=== PATIENT | male | born 1995 | race Caucasian/White ===

== ENCOUNTER 2018-07-30 15:22 | Emergency (ER) | payer OTHER ==
--- NOTE | 2018-07-30 16:44 | EDM.PDOC ---
ED HPI GENERAL MEDICAL PROBLEM - General Chief Complaint: Upper Extremity Injury/Pain Stated Complaint: RIGHT RING FINGER INJURY AT WORK Time Seen by Provider: 07/30/18 16:43 Source of Information: Reports: Patient History Limitations: Reports: No Limitations - History of Present Illness INITIAL COMMENTS - FREE TEXT/NARRATIVE: 22-year-old male presents for evaluation and treatment of injury to the right hand fourth finger. Injury occurred prior to arrival in the ER. Patient was at work. 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 States that he caughte the distal finger in a car door. He has numbness, tingling, swelling and bruising to the right hand fourth distal phalanx. Nail is partially avulsed. Denies any injury to any other fingers. Bleeding controlled upon arrival to the ER. Tetanus was 7 years ago. Patient is right-handed. Right Finger-Ring Pain Score (Numeric/FACES): 7 - Related Data Allergies Allergy/AdvReac Type Severity Reaction Status Date / Time sumatriptan [From Imitrex] Allergy Anaphylactic Verified 07/30/18 16:13 Shock Home Meds: Home Meds Acetaminophen/HYDROcodone [[place] 325-5 MG] 1 tab PO Q4H PRN #10 tablet 07/30/18 [Rx] Cephalexin [Keflex] 500 mg PO BID #14 capsule 07/30/18 [Rx] Review of Systems - Review of Systems Review Of Systems: See Below Musculoskeletal: Reports: Hand Pain (Right fourth finger) Skin: Reports: Wound (Right fourth finger partial nail avulsion of the proximal and) Neurological: Reports: Numbness (Right fourth finger), Tingling (Right fourth finger) ED EXAM, GENERAL - Physical Exam Exam: See Below Exam Limited By: No Limitations General Appearance: Alert, WD/WN, No Apparent Distress Respiratory/Chest: No Respiratory Distress, Lungs Clear, Normal Breath Sounds Cardiovascular: Normal Peripheral Pulses, Regular Rate, Rhythm, No Murmur Peripheral Pulses: 2+: Radial (R) Extremities: Normal Capillary Refill, Other (swelling, bruuising to hte right distal 4th finger, nail partially avulsed at the proximal aspect, minor bleeding ) Neurological: Alert, Oriented, Normal Cognition Psychiatric: Normal Affect, Normal Mood Skin Exam: Warm, Dry, Normal Color ED TRAUMA EXTREMITY PROCEDURES - Splinting Right Upper Extremity Splint Site: Right fourth finger Pre-Procedure NV Status: Normal Post-Procedure NV Status: Normal Splint Material: Aluminum-Foam, Elke Tape Splint Design: Posterior Applied & Form Fitted By: Nurse Provider Post-Splint Application NV Check: NV Status Normal, Good Position Complications: No Course - Vital Signs Last Recorded V/S: Last Vital Signs Temp 97.5 F 07/30/18 16:07 Pulse 88 07/30/18 16:07 Resp 20 07/30/18 16:07 BP 145/86 H 07/30/18 16:07 Pulse Ox 99 07/30/18 16:07 - Orders/Labs/Meds Meds: Medications Discontinued Medications Generic Name Dose Route Start Last Admin Trade Name Freq PRN Reason Stop Dose Admin Cephalexin 500 mg 07/30/18 17:57 Keflex PO 07/30/18 17:58 ONETIME ONE - Radiology Interpretation Free Text/Narrative:: Right fourth finger: 4 views of the right fourth finger are obtained. Comparison: No previous study. Slightly comminuted tuft fracture is noted within the distal right fourth finger. Diffuse soft tissue swelling is seen. No additional fracture or other bony abnormality is appreciated. Impression: 1. Tuft fracture as noted above. Diffuse soft tissue swelling. - Re-Assessments/Exams Free Text/Narrative Re-Assessment/Exam: 07/30/18 18:00 Reviewed the x-ray results with the patient. Nothing to suture we will clean him up in his tetanus is up-to-date. We'll place on antibiotics. Will place in AlumaFoam splint and elke tape the fingers. Follow-up with occupational health. Discharge instructions as documented. Departure - Departure Time of Disposition: 18:03 Disposition: Home, Self-Care 01 Condition: Fair Clinical Impression: Phalanx, distal fracture of finger, Nail avulsion, finger - Discharge Information *PRESCRIPTION DRUG MONITORING PROGRAM REVIEWED*: No *COPY OF PRESCRIPTION DRUG MONITORING REPORT IN PATIENT [facility]: No Prescriptions: Acetaminophen/HYDROcodone [[place] 325-5 MG] 1 tab PO Q4H PRN #10 tablet PRN Reason: Pain Cephalexin [Keflex] 500 mg PO BID #14 capsule Instructions: Finger Fracture, Adult, [id number] Referrals: PCP,None [Primary Care Provider] - Alexei Mueller MD [Physician] - Forms: ED Department Discharge Additional Instructions: [id number] Tylenol or Motrin as needed for pain. Do not take more than 4 g of Tylenol from all sources in 1 day. Do not take more than 3200 mg of ibuprofen from all sources in 1 day. For pain not [id number] Tylenol or Motrin may take [place] one tablet every 4-6 hours. [place] is habit-forming, take as few these as needed to control your pain. Do not drive or operate machinery within 10 hours of taking [place]. Follow-up with orthopedics this week or next week. Recommend Dr. Mueller. Call [phone] to schedule with him. Ice as much as you able to. Elevate, blood flow. Heart help the swelling. Keep the splint on for protection. Elke tape for immobilization. Please return to the ER for symptoms change or worsen.
[2018-07-30] MEDS ORDERED: Cephalexin 500 MG Cap PO ONE (17:57)
--- NOTE | 2018-07-31 11:27 | CR ---
Right fourth finger: Four views of the right fourth finger are obtained. Comparison: No previous study. Slightly comminuted tuft fracture is noted within the distal right fourth finger. Diffuse soft tissue swelling is seen. No additional fracture or other bony abnormality is appreciated. Impression: 1. Tuft fracture as noted above. Diffuse soft tissue swelling. Diagnostic code #3
== END 2018-07-30 18:18 | disposition home or self-care (01) ==
LOC: JD.ED 15:22
DX: S62.634A Displaced fracture of distal phalanx of right ring finger, initial encounter for closed fracture (principal); Z88.8 Allergy status to other drugs, medicaments and biological substances; W23.0XXA Caught, crushed, jammed, or pinched between moving objects, initial encounter; Y99.0 Civilian activity done for income or pay
CPT/HCPCS: 73140-26-F8; 73140-F8; 99283; 99283-25

== ENCOUNTER 2020-08-30 18:27 | Emergency (ER) | payer BC, OTHER ==
[2020-08-30] MEDS ORDERED: Fluorescein 1 MG Ophth Strip EYERT ONE (18:47)
--- NOTE | 2020-08-30 18:52 | EDM.PDOC ---
ED HPI GENERAL MEDICAL PROBLEM - General Chief Complaint: Eye Problems Stated Complaint: FB IN LT EYE Time Seen by Provider: 08/30/20 18:43 Source of Information: Reports: Patient, RN Notes Reviewed History Limitations: Reports: No Limitations - History of Present Illness INITIAL COMMENTS - FREE TEXT/NARRATIVE: Patient is a 24-year-old male who presents to the ER for the evaluation of a foreign body sensation in his left eye. The patient states that prior to coming to the ER, he was using a drill bit, on some glass, he was not wearing eye protection, he felt something hit his left eye. He immediately flushed his eye out for some time, but continues to have a scratching sensation into his left eye, redness and irritation along with some watering of his left eye. He is denying any blurred vision or double vision. Patient denies any other sick-like symptoms, fever/chills, cough/shortness of breath, nausea/vomiting/diarrhea. Patient does not normally wear contacts but does have glasses for astigmatism. Patient also states that he is having some left ankle pain, as he did roll his ankle at work last week but he has been able to bear weight on this since then. He is not really been taking any sort of Tylenol ibuprofen for the pain management nor has he been using any sort of compression or ice or elevation. - Related Data Allergies Allergy/AdvReac Type Severity Reaction Status Date / Time sumatriptan [From Imitrex] Allergy Anaphylactic Verified 08/30/20 18:35 Shock Home Meds: Home Meds . [No Known Home Meds] 08/30/20 [History] Past Medical History - Past Health History Medical/Surgical History: Denies Medical/Surgical History Neurological History: Reports: Concussion Psychiatric History: Reports: Psych Hospitalization(s) Dermatologic History: Reports: Eczema - Past Surgical History Other HEENT Surgeries/Procedures: bilateral ear tubs as a child Social & Family History - Family History Family Medical History: No Pertinent Family History - Tobacco Use Tobacco Use Status *Q: Former Tobacco User Used Tobacco, but Quit: Yes Month/Year Tobacco Last Used: 07/2020 - Caffeine Use Caffeine Use: Reports: Coffee, Tea - Recreational Drug Use Recreational Drug Use: No ED ROS GENERAL - Review of Systems Review Of Systems: Comprehensive ROS is negative, except as noted in HPI. ED EXAM GENERAL W FULL EYE - Physical Exam Exam: See Below Exam Limited By: No Limitations General Appearance: Alert, WD/WN, No Apparent Distress Eye Exam: Right Eye: Normal Inspection, Left Eye: Conjunctival Injection, Bilateral Eye: EOMI, PERRL Eyelids: Bilateral: Normal Appearance, Lid Everted for Exam Conjunctiva & Sclera: Right: Normal Appearance, Left: Injected Cornea Exam: Left: Corneal Abrasion, Examined with Flourescein Extraocular Movements: Bilateral: Intact Pupils: Normal Accommodation Pupillary Size: Bilateral: 3 mm Pupillary Reaction: Bilateral: Brisk Respiratory/Chest: No Respiratory Distress, Lungs Clear, Normal Breath Sounds, No Accessory Muscle Use, Chest Non-Tender Cardiovascular: Normal Peripheral Pulses, Regular Rate, Rhythm, No Edema Extremities: Normal Inspection, Normal Capillary Refill Neurological: Alert, Oriented, Normal Cognition, No Motor/Sensory Deficits Psychiatric: Normal Affect, Normal Mood Skin Exam: Warm, Dry, Intact, Normal Color, No Rash Course - Vital Signs Last Recorded V/S: Last Vital Signs Temp 98 F 08/30/20 18:31 Pulse 76 08/30/20 18:31 Resp 14 08/30/20 18:31 BP 121/81 08/30/20 18:31 Pulse Ox 98 08/30/20 18:31 - Orders/Labs/Meds Meds: Medications Discontinued Medications Generic Name Dose Route Start Last Admin Trade Name Artemio PRN Reason Stop Dose Admin Erythromycin 1 gm 08/30/20 19:14 Erythromycin Base 0.5% Ophth Oint 1 Gm Tube EYELF 08/30/20 19:15 ONETIME ONE Fluorescein Sodium 1 mg 08/30/20 18:47 08/30/20 19:03 Fluorescein 1 Mg Ophth Strip EYERT 08/30/20 18:48 1 mg ONETIME ONE Administration Ketorolac Tromethamine 1 ml 08/30/20 19:14 Ketorolac 0.5% Ophth Soln 5 Ml Bottle EYELF 08/30/20 19:15 ONETIME ONE - Re-Assessments/Exams Free Text/Narrative Re-Assessment/Exam: 08/30/20 18:51 Patient presents to the ER for the evaluation of his left eye irritation, likely has a corneal abrasion, have ordered some fluorescein for further evaluation of his eye. Departure - Departure Time of Disposition: 19:16 Disposition: Home, Self-Care 01 Condition: Good Clinical Impression: History of sprained ankle Injury of conjunctiva and corneal abrasion of left eye w/o FB Qualifiers: Encounter type: initial encounter Qualified Code(s): S05.02XA - Injury of conjunctiva and corneal abrasion without foreign body, left eye, initial encounter - Discharge Information *PRESCRIPTION DRUG MONITORING PROGRAM REVIEWED*: No *COPY OF PRESCRIPTION DRUG MONITORING REPORT IN PATIENT [facility]: No Instructions: Corneal Abrasion, [id number] Referrals: PCP,None [Primary Care Provider] - Forms: ED Department Discharge Additional Instructions: You have been evaluated in the ED today for a foreign body sensation in your eye. You were identified to have a corneal abrasion to the Left eye. You were given some pain drops for your eye, ketorolac, please instill 2 drops t o the affected eye every 6 hours at least for the next 24 hours . You may use this up to 2-3 days if needed. Please use the erythromycin ointment, 1 cm ribbon to the lower affected eyelid margin 4 times daily for the next 3-5 days. Recommend that you follow up with optometry [facility] for a more thorough evaluation and to make sure that everything is healing appropriately. You will have to call around and schedule yourself an appointment with the next available provider if you do not already have a current eye doctor. As for your rolled left ankle, please use ice to the area, you may use Tylenol ibuprofen every 6 hours as needed for ongoing pain management. You may use Hunter wraps, or commercial ankle braces that you can get at any pharmacy or [facility] for ongoing management. Please return to the ED if your symptoms should change or worsen. Sepsis Event Note (ED) - Evaluation Sepsis Screening Result: No Definite Risk - Focused Exam Vital Signs: Vital Signs Temp Pulse Resp BP Pulse Ox 08/30/20 18:31 98 F 76 14 121/81 98
[2020-08-30] MEDS ORDERED: Ketorolac 0.5% Ophth Soln 5 ML Bottle EYELF ONE (19:14)
[2020-08-30] MEDS ORDERED: Erythromycin Base 0.5% Ophth Oint 1 GM Tube EYELF ONE (19:14)
== END 2020-08-30 19:29 | disposition home or self-care (01) ==
LOC: JD.ED 18:27
DX: S05.02XA Injury of conjunctiva and corneal abrasion without foreign body, left eye, initial encounter (principal); Z87.891 Personal history of nicotine dependence; Z88.8 Allergy status to other drugs, medicaments and biological substances; W22.8XXA Striking against or struck by other objects, initial encounter
CPT/HCPCS: 99283; A9270

== ENCOUNTER 2023-05-27 13:30 | Emergency (ER) | payer BC, OTHER | END 2023-05-27 15:05 | disposition home or self-care (01) | LOC: JD.ED 13:30 | DX: L03.114 Cellulitis of left upper limb (principal); F17.210 Nicotine dependence, cigarettes, uncomplicated; Z88.8 Allergy status to other drugs, medicaments and biological substances | CPT/HCPCS: 99283 ==

== ENCOUNTER 2023-12-22 10:43 | Day surgery (SDC) | payer BC ==
[~2023-12-22 10:43] MED LIST: HYDROmorphone 0.5 MG/0.5 ML Syringe IVPUSH PRN; Ondansetron 4 MG/2 ML SDV IVPUSH PRN; Sodium Chloride 0.9% 10 ML Syringe FLUSH PRN; Sodium Chloride 0.9% 10 ML Syringe FLUSH SCH; fentaNYL 100 MCG/2 ML SDV IVPUSH PRN
[2023-12-22] MEDS: Lactated Ringers 1,000 ML IV SCH (11:05)
[2023-12-22] MEDS ORDERED: fentaNYL 100 MCG/2 ML SDV ONE (11:17)
[2023-12-22] MEDS ORDERED: Ketorolac 30 MG/ML SDV ONE (11:17)
[2023-12-22] MEDS ORDERED: Propofol 200 MG/20 ML SDV ONE ×2 (11:17→12:58)
[2023-12-22] MEDS ORDERED: ceFAZolin 2 GM Vial ONE (11:17)
[2023-12-22] MEDS ORDERED: Midazolam 1 MG/ML 2 ML SDV ONE (11:17)
[2023-12-22] MEDS ORDERED: Ondansetron 4 MG/2 ML SDV ONE (11:17)
[2023-12-22] MEDS ORDERED: Dexamethasone 4 MG/ML 5 ML MDV ONE (11:18)
[2023-12-22] MEDS ORDERED: Lidocaine 1% 4 ML ONE (11:18)
[2023-12-22] MEDS ORDERED: dexmedeTOMIDine HCl 200 MCG/2 ML SDV ONE (12:31)
[2023-12-22] MEDS: Bupivacaine 0.25% 10 ML SDV ONE (13:05)
[2023-12-22] MEDS: EPINEPHrine 1 MG/ML SDV ONE (13:05)
== END 2023-12-22 15:08 | disposition home or self-care (01) ==
LOC: JD.SDS 10:43
PROVIDERS: ATTEND Orthopaedic Surgery
DX: S83.242A Other tear of medial meniscus, current injury, left knee, initial encounter (principal); Z79.899 Other long term (current) drug therapy; Z88.8 Allergy status to other drugs, medicaments and biological substances; Z87.891 Personal history of nicotine dependence
CPT/HCPCS: 29881; 87641; J0171; J0665; J0690; J1100; J1885; J2250; J2405; J2704; J3010; J7120; 01400; J3490